=== PATIENT | male | born 1950 | race Caucasian/White ===

== ENCOUNTER 2018-03-12 11:36 | Outpatient (CLI) | payer MEDICARE, OTHER ==
--- NOTE | 2018-03-12 13:58 | RAD ---
BONE SURVEY: Date: 03-12-18 Provided Clinical History: Staging of multiple myeloma. FINDINGS: Frontal and lateral views of the cervical, thoracic, and lumbar spine, as well as frontal and lateral views of the upper and lower extremities, frontal pelvis, and lateral view of the skull submitted. D egenerative changes are seen involving the cervical, thoracic and lumbar spine. There is no evidence for a radiographically apparent myelomatous lesion. IMPRESSION: No radiographic evidence for a myelomatous lesion. POS: [facility]
== END 2018-03-12 11:37 | disposition home or self-care (01) ==
LOC: BICRAD 11:36
PROVIDERS: ATTEND Internal Medicine Hematology & Oncology
DX: C90.00 Multiple myeloma not having achieved remission (principal)
CPT/HCPCS: 77075

== ENCOUNTER 2018-04-06 09:44 | Outpatient (CLI) | payer MEDICARE | END 2018-04-06 09:45 | disposition home or self-care (01) | LOC: CTENTCT 09:44 | PROVIDERS: ATTEND Specialist | DX: J01.81 Other acute recurrent sinusitis (principal) | CPT/HCPCS: 70486 ==

== ENCOUNTER 2019-01-03 12:46 | Emergency (ER) | payer MEDICARE, OTHER | END 2019-01-03 13:15 | disposition home or self-care (01) | LOC: SCSER 12:46 | DX: L03.032 Cellulitis of left toe (principal); I10 Essential (primary) hypertension | CPT/HCPCS: 99283 ==

== ENCOUNTER 2020-06-28 08:35 | Outpatient (CLI) | payer MEDICARE ==
[2020-06-28 09:46] LABS: Hemoglobin 13.3 g/dL (13.5-17.5); Mean Corpuscular HGB CONC 33.3 g/dL (32.0-36.0); Mean Corpuscular Hemoglobin 32.8 pg (27.0-33.0); Mean Corpuscular Volume 98.3 fl (81.2-95.1); Mean Platelet Volume 10.7 fl (7.4-10.4); Platelet Count 233 10x3/uL (150-450); RBC Distribution Width 17.1 % (11.5-14.5); Red Blood Cell (RBC) Count 4.06 10x6/uL (4.32-5.72); White Blood Cell (WBC) Count 9.7 10x3/uL (3.5-10.5)
[2020-06-28 10:00] LABS: Anion Gap 12 mmol/L (10-20); BUN (Urea Nitrogen) 4 mg/dL (8.4-25.7); Calc. Creatinine Clearance 0 mL/min (70-130); Calcium 8.8 mg/dL (7.8-10.44); Carbon Dioxide 26 mmol/L (23-31); Chloride 98 mmol/L (98-107); Glucose 81 mg/dL (83-110); Sodium 132 mmol/L (136-145)
[2020-06-28 10:01] LABS: INR-International Normal Ratio 1.2; PTT 33.9 sec (22.0-33.0); Prothrombin Time 13.3 sec (9.5-12.1)
[2020-06-28 11:24] LABS: Bilirubin Neg (Negative); Blood, Urine Negative (Negative); Clarity Clear (Clear); Glucose, Urine (Dipstick) Normal (Negative); Ketone, Urine Negative (Negative); Leukocyte Negative (Negative); Nitrite Negative (Negative); Protein, Urine (Dipstick) Negative (Neg-Trace); Urobilinogen Normal mg/dL (Less than 2)
[2020-06-28 11:36] LABS: Bacteria/HPF None Seen HPF (None Seen); RBC/HPF 0-3 HPF (0-3); Squamous Epithelial 0-3 HPF (0-3); WBC/HPF 0-3 HPF (0-3)
[2020-06-28 13:45] LABS: SARS-CoV-2 PCR by NAA Not Detected (NotDetected)
== END 2020-06-28 08:36 | disposition home or self-care (01) ==
LOC: LABBT 08:35
PROVIDERS: ATTEND Urology
DX: Z01.818 Encounter for other preprocedural examination (principal); N40.1 Benign prostatic hyperplasia with lower urinary tract symptoms; N52.01 Erectile dysfunction due to arterial insufficiency; R63.1 Polydipsia; M35.3 Polymyalgia rheumatica; Z20.822 Contact with and (suspected) exposure to COVID-19
CPT/HCPCS: 80048; 81001; 85027; 85610; 85730; 87086; 93005; U0003; U0005; 87635; 93010

== ENCOUNTER 2020-06-29 07:14 | Day surgery (SDC) | payer MEDICARE ==
[2020-06-28 13:40] VITALS: BMI 26.4
[2020-06-29] MEDS ORDERED: Levofloxacin 500 mg/D5W 100 ml Premix Bag ONE (08:27)
[2020-06-29] MEDS ORDERED: Labetalol HCl 100 MG/20 ML VIAL ONE (09:02)
[2020-06-29] MEDS ORDERED: B & O ONE (09:26)
[2020-06-29] MEDS ORDERED: Fentanyl 100 MCG/2 ML VIAL ONE (09:32)
[2020-06-29] MEDS ORDERED: Midazolam HCl 2 mg/2 ml Vial ONE (09:32)
[2020-06-29] MEDS ORDERED: PROPOFOL 200 MG/20 ML VIAL ONE (09:39)
== END 2020-06-29 12:15 | disposition home or self-care (01) ==
LOC: SDC 07:14
PROVIDERS: ATTEND Urology
PROC: 0T7D8DZ Dilation of Urethra with Intraluminal Device, Via Natural or Artificial Opening Endoscopic (ICD-10-PCS; principal; 2020-06-29)
DX: N40.1 Benign prostatic hyperplasia with lower urinary tract symptoms (principal); N13.8 Other obstructive and reflux uropathy; N52.01 Erectile dysfunction due to arterial insufficiency; M35.3 Polymyalgia rheumatica; I10 Essential (primary) hypertension; K21.9 Gastro-esophageal reflux disease without esophagitis; E78.5 Hyperlipidemia, unspecified; F10.11 Alcohol abuse, in remission; Z79.52 Long term (current) use of systemic steroids; Z79.899 Other long term (current) drug therapy; Z88.8 Allergy status to other drugs, medicaments and biological substances
CPT/HCPCS: C9740; L8699; J1956; J2250; J2704; J3010